=== PATIENT | female | born 1950 | race African-American/Black ===

== ENCOUNTER 2016-12-16 21:48 | Emergency (ER) | payer SELFPAY ==
[2016-12-16] MEDS ORDERED: ACETAMINOPHEN 325 MG TABLET PO ONE (22:50)
--- NOTE | 2016-12-16 22:50 | ER Document Report ---
ED Medical Screen (RME) - General Stated Complaint: FEET SWELLING Time seen by provider: 22:47 Mode of Arrival: Ambulatory Information source: Patient Notes: 66-year-old female presents to ED for swelling of the right foot, foot is tender to the touch. Patient does not know of any injuries that she's done to her foot She is also complaining of pain in her right ear that started today. States she does not have any past medical history but she does have a blood pressure in the emergency room. I have greeted and performed a rapid initial assessment of this patient. A comprehensive ED assessment and evaluation of the patient, analysis of test results and completion of medical decision making process will be conducted by an additional ED providers. Physical Exam - Vital signs Vitals: Temp Pulse Resp BP Pulse Ox 99.1 F 87 18 177/102 H 97 12/16/16 22:11 12/16/16 22:11 12/16/16 22:11 12/16/16 22:11 12/16/16 22:11 Course - Vital Signs Vital signs: Temp Pulse Resp BP Pulse Ox 99.1 F 87 18 177/102 H 97 12/16/16 22:11 12/16/16 22:11 12/16/16 22:11 12/16/16 22:11 12/16/16 22:11
[2016-12-16 23:39] LABS: ABSOLUTE BASOPHILS # (AUTO) 0.1 10^3/uL (0.0-0.2); ABSOLUTE LYMPHOCYTES (AUTO) 2.5 10^3/uL (0.5-4.7); ABSOLUTE NEUT (AUTO) 11.7 10^3/uL (1.7-8.2); BASOPHILS % (AUTO) 0.3 % (0-2); EOSINOPHILS % (AUTO) 0.3 % (0-6); HEMATOCRIT 38.2 % (36.0-47.0); HEMOGLOBIN 12.6 g/dL (12.0-15.5); HGB HCT DIFFERENCE -0.4; LYMPHOCYTES % (AUTO) 15.3 % (13-45); MEAN CORPUSCULAR HEMOGLOBIN 28.1 pg (27.0-33.4); MEAN CORPUSCULAR VOLUME 85 fl (80-97); MONOCYTES % (AUTO) 12.1 % (3-13); RED BLOOD COUNT 4.49 10^6/uL (3.72-5.28); RED CELL DISTRIBUTION WIDTH 14.9 % (11.5-14.0); WHITE BLOOD COUNT 16.2 10^3/uL (4.0-10.5)
[2016-12-16 23:57] LABS: ALANINE AMINOTRANSFERASE 24 U/L (9-52); ALBUMIN 4.6 g/dL (3.5-5.0); ALKALINE PHOSPHATASE 92 U/L (38-126); ANION GAP 16 (5-19); ASPARTATE AMINO TRANSFERASE 27 U/L (14-36); BILIRUBIN,DIRECT 0.1 mg/dL (0.0-0.4); BILIRUBIN,TOTAL 0.9 mg/dL (0.2-1.3); BLOOD UREA NITROGEN 22 mg/dL (7-20); CALCIUM 9.8 mg/dL (8.4-10.2); CARBON DIOXIDE 30 mmol/L (22-30); CHLORIDE 99 mmol/L (98-107); CREATININE RESULT 1.11 mg/dL (0.52-1.25); GLUCOSE 95 mg/dL (75-110); POTASSIUM 3.3 mmol/L (3.6-5.0); SODIUM 145.1 mmol/L (137-145); TOTAL PROTEIN 8.2 g/dL (6.3-8.2)
[2016-12-17 04:12] VITALS: BP 175/83
[2016-12-17] MEDS ORDERED: ALLOPURINOL 100 MG TABLET PO ONE (06:03)
[2016-12-17] MEDS ORDERED: IBUPROFEN 600 MG TABLET PO ONE (06:04)
--- NOTE | 2016-12-17 06:08 | ER Document Report ---
HPI - HPI Patient complains to provider of: toe pain Pain Level: 5 Context: Patient is a 58-year-old female who presents emergency Department complaining of right big toe pain for the past 2 days. History is per daughter since the patient's primary language is not [place]. She states that her mom had some onset of this toe pain which is wax and wane in severity and improves with Motrin. She denies any trauma or injury to this toe previously denies any wounds. Denies any history of gout Denies past medical history - REPRODUCTIVE LMP: na - DERM Skin Color: Normal <ELMER SRINIVASAN - Last Filed: 12/17/16 07:37> Past Medical History - General Information source: Patient - Social History Smoking Status: Never Smoker Chew tobacco use (# tins/day): No Frequency of alcohol use: None Drug Abuse: None Family History: Reviewed & Not Pertinent Patient has suicidal ideation: No Patient has homicidal ideation: No Renal/ Medical History: Denies: Hx Peritoneal Dialysis Surgical Hx: Negative <ELMER SRINIVASAN - Last Filed: 12/17/16 07:37> Vertical Provider Document - CONSTITUTIONAL Agree With Documented VS: Yes Exam Limitations: No Limitations General Appearance: WD/WN, No Apparent Distress - INFECTION CONTROL TRAVEL OUTSIDE OF THE [place] IN LAST 30 DAYS: No - RESPIRATORY O2 Sat by Pulse Oximetry: 99 - CARDIOVASCULAR Pulses: Normal: Radial, Dorsalis pedis Notes: Capillary refill less than 2 seconds in all lower extremity digits. - MUSCULOSKELETAL/EXTREMETIES Musculoskeletal/Extremeties: MAEW, FROM, Tender - Tenderness at the base of the right big toe. At the MTP joint, Edema - Mild edema Notes: No evidence of deformity. No pain to palpation with squeezing of the foot or palpation of the big toe. - NEURO Level of Consciousness: Awake, Alert, Appropriate Motor/Sensory: No Motor Deficit, No Sensory Deficit - DERM Integumentary: Warm <ELMER SRINIVASAN - Last Filed: 12/17/16 07:37> Course - Re-evaluation Re-evalutation: 12/17/16 07:39 Patient is evidence of acute gout flareup. She was indicated for acute treatment of gout and follow-up with primary care. - Vital Signs Vital signs: Temp Pulse Resp BP Pulse Ox 98.1 F 69 18 175/83 H 99 12/17/16 03:46 12/17/16 03:46 12/17/16 03:46 12/17/16 03:46 12/17/16 03:46 - Laboratory Result Diagrams: 12/16/16 23:08 12/16/16 23:08 Laboratory results interpreted by me: 12/16/16 12/16/16 12/16/16 23:08 23:08 23:08 WBC 16.2 H RDW 14.9 H Absolute Neutrophils 11.7 H Absolute Monocytes 2.0 H Sodium 145.1 H Potassium 3.3 L BUN 22 H Est GFR ( Amer) 59 L Est GFR (Non-Af Amer) 49 L Uric Acid 8.1 H <ELMER SRINIVASAN - Last Filed: 12/17/16 07:37> - Vital Signs Vital signs: Temp Pulse Resp BP Pulse Ox 98.1 F 69 18 175/83 H 99 12/17/16 03:46 12/17/16 03:46 12/17/16 03:46 12/17/16 03:46 12/17/16 07:40 - Laboratory Result Diagrams: 12/16/16 23:08 12/16/16 23:08 Laboratory results interpreted by me: 12/16/16 12/16/16 12/16/16 23:08 23:08 23:08 WBC 16.2 H RDW 14.9 H Absolute Neutrophils 11.7 H Absolute Monocytes 2.0 H Sodium 145.1 H Potassium 3.3 L BUN 22 H Est GFR ( Amer) 59 L Est GFR (Non-Af Amer) 49 L Uric Acid 8.1 H <JAZMÍN FREY - Last Filed: 12/18/16 05:29> Discharge <ELMER SRINIVASAN - Last Filed: 12/17/16 07:37> <JAZMÍN FREY - Last Filed: 12/18/16 05:29> - Discharge Clinical Impression: Gout Condition: Good Disposition: HOME, SELF-CARE Additional Instructions: Gout You have been diagnosed as having gout. Gout is a problem caused by an excess of uric acid, a natural chemical found in the body. The cause of this disease is unknown. Gout arthritis occurs when crystals of uric acid form in the joints. The big toe is the most common joint involved, but any joint can become affected. Persons with gout may also form uric acid kidney stones, resulting in flank pain and blood in the urine. Nodules of uric acid may form under the skin. The first step of treatment is to decrease the inflammation in the joint with antiinflammatory medication. Medication to lower the uric acid level in the blood may then be prescribed. This medication should be taken regularly, as any sudden change in dosage may provoke an attack of gout. Some foods, such as red meat, can provoke an attack in some gout sufferers. Call the doctor if new symptoms arise, or if you do not improve. Prescriptions: Ibuprofen [Motrin 600 mg Tablet] 600 mg PO Q8HP PRN #30 tablet PRN Reason: Allopurinol [Zyloprim 100 mg Tablet] 100 mg PO DAILY #30 tablet Forms: Elevated Blood Pressure Referrals: CHICHO CARROLL MD [NO LOCAL MD] - Follow up in 1 week [facility] [NO [facility]AL MD] - Follow up in 1 week
== END 2016-12-17 06:50 | disposition home or self-care (01) ==
LOC: ER 21:48
DX: M10.9 Gout, unspecified (principal); M79.674 Pain in right toe(s)
CPT/HCPCS: 36415; 80053; 84550; 85025; 99283